=== PATIENT | male | born 1955 | race Caucasian/White ===

== ENCOUNTER → 2024-01-03 | Outpatient (CLI) | payer MEDICARE ==
--- NOTE | 2024-01-03 12:40 | US ---
EXAMINATION TYPE: US Aorta Screening DATE OF EXAM: 01/03/2024 COMPARISON: NONE CLINICAL INDICATION: Male, 68 years old with history of Z13.6 ENCOUNTER FOR SCREENING FOR CARDIOVASCU LAR D; Hx smoking, screening TECHNIQUE: Multiple sonographic images of the abdominal aorta are obtained. FINDINGS: EXAM MEASUREMENTS: Abdominal Aorta: Proximal: 2.6x2.5 Mid: 2.0x2.1 Distal: 2.0x1.9 Bifurcation: Right Iliac: 1.0x0.9 Left Iliac: 1.1x1.0 GRILL CHEF NOTES: mild plaque distal Aorta, no AAA, ectasia or fusiform dilation seen IMPRESSION: No abdominal aortic aneurysm.
== END | disposition home or self-care (01) ==
LOC: RADUSWWP 08:07
PROVIDERS: ATTEND Family Medicine
DX: Z13.6 Encounter for screening for cardiovascular disorders (principal)
CPT/HCPCS: 76706